=== PATIENT | male | born 1975 | race Native Hawaiian/Other Pacific Islander ===

== ENCOUNTER 2017-06-30 04:00 | Emergency (ER) | payer OTHER ==
[~2017-06-30] VITALS: Ht 182.9 cm; Wt 99.8 kg
[2017-06-30 04:05] VITALS: TEMP 97.6
[2017-06-30 04:41] LABS: POTASSIUM 3.9 mmol/L (3.6-5.2); SODIUM 138 mmol/L (136-145)
[2017-06-30 05:47] LABS: PLATELET COUNT 336 K/uL (142-355)
[2017-06-30 07:50] VITALS: BP 145/73
== END 2017-06-30 07:50 | disposition home or self-care (01) ==
LOC: ED 04:00
DX: K80.20 Calculus of gallbladder without cholecystitis without obstruction (principal)
CPT/HCPCS: 36415; 80053; 85007; 85027; 96374; 96375; 99284; J1885; J2405

== ENCOUNTER 2021-11-12 08:55 | Emergency (ER) | payer OTHER ==
[~2021-11-12] VITALS: Ht 180.3 cm; Wt 99.8 kg
[2021-11-12 08:55] VITALS: TEMP 96
[2021-11-12 09:28] LABS: PLATELET COUNT 270 K/uL (142-355)
[2021-11-12 09:33] LABS: POTASSIUM 3.8 mmol/L (3.6-5.2)
[2021-11-12 09:39] LABS: PARTIAL THROMBOPLASTIN TIME 22.7 SECONDS (24.5-33.6)
[2021-11-12 11:53] VITALS: BP 126/68
== END 2021-11-12 11:55 | disposition home or self-care (01) ==
LOC: ED 08:55
PROVIDERS: Hospitalist
DX: N13.2 Hydronephrosis with renal and ureteral calculous obstruction (principal); K80.80 Other cholelithiasis without obstruction
CPT/HCPCS: 36415; 80053; 81000; 83690; 85027; 85610; 85730; 96360; 96365; 96375; 99284; J1170; J1885; J2405; J2543; Q9963